=== PATIENT | male | born 1995 | race Caucasian/White ===

== ENCOUNTER 2021-10-22 16:28 | Inpatient (IN) ==
[2021-10-22] MEDS ORDERED: Ondansetron ODT 4 MG TAB.RAPDIS SL ONE (18:49)
[2021-10-22] MEDS ORDERED: Ipratropium/Albuterol Neb 3 ML IH ONE ×2 (18:59→20:00)
[2021-10-22] MEDS ORDERED: 0.9 % Sodium Chloride 1,000 ML IVC ONE (19:57)
[2021-10-22 20:18] LABS: Basophils % 0.6 %; Eosinophils # 0.2 K/mcL (0.0-0.6); Eosinophils % 3.1 %; Hematocrit 43.1 % (37.5-50.1); Hemoglobin 14.7 g/dL (12.9-16.9); Immature Granulocytes % 0.3 % (0-4); Lymphocytes # 1.4 K/mcL (0.6-4.6); Lymphocytes % 20.1 %; Mean Corpuscular HGB Conc 34.1 g/dL (31.6-35.5); Mean Corpuscular Hemoglobin 30.4 pg (28.0-33.3); Mean Corpuscular Volume 89.2 fL (83.0-100.0); Mean Platelet Volume 8.9 fL (9.4-12.4); Monocytes # 0.6 K/mcL (0.0-1.3); Monocytes % 8.3 %; Neutrophils # 4.8 K/mcL (1.6-8.9); Platelet Count 218 K/mcL (140-400); Red Blood Count 4.83 M/mcL (4.19-5.50); Red Cell Distribution Width 13.2 % (11.5-14.5); Segmented Neutrophils % 67.6 %; White Blood Count 7.1 K/mcL (4.3-11.1)
[2021-10-22 20:37] LABS: Adenovirus Not Detected (Not Detect); Bordetella Pertussis Not Detected (Not Detect); Chlamydophila pneumoniae Not Detected (Not Detect); Coronavirus 229E Not Detected (Not Detect); Coronavirus HKU1 Not Detected (Not Detect); Coronavirus NL63 Not Detected (Not Detect); Coronavirus OC43 Not Detected (Not Detect); Human Metapneumovirus Not Detected (Not Detect); Human Rhinovirus/Enterovirus DETECTED (Not Detect); Influenza A Subtype 2009 H1 Not Detected (Not Detect); Influenza B Not Detected (Not Detect); Mycoplasma pneumoniae Not Detected (Not Detect); Parainfluenza Virus 1 Not Detected (Not Detect); Parainfluenza Virus 2 Not Detected (Not Detect); Parainfluenza Virus 3 Not Detected (Not Detect); Parainfluenza Virus 4 Not Detected (Not Detect); Respiratory Syncytial Virus Not Detected (Not Detect); SARS-CoV-2 Not Detected (Not Detect)
[2021-10-22] MEDS ORDERED: Iopamidol - 370 500 ML MLS IVP ONE (20:57)
[2021-10-22 22:15] LABS: Alanine Aminotransferase 57 Units/L (7-52); Albumin 3.7 g/dL (3.5-5.7); Albumin/Globulin Ratio 1.2 (1.1-2.2); Alkaline Phosphatase 32 Units/L (34-104); Aspartate Amino Transferase 41 Units/L (13-39); BUN/Creatinine Ratio 20 (6-26); Bilirubin,Total 0.3 mg/dL (0.3-1.0); Blood Urea Nitrogen 16 mg/dL (6-20); Calcium 8.1 mg/dL (8.6-10.3); Carbon Dioxide 28 mEq/L (23-29); Chloride 102 mEq/L (98-107); Globulin 3.1 g/dL (2.4-3.5); Glucose 102 mg/dL (70-105); Osmolality,Calculated 287 (280-300); Potassium 3.6 mEq/L (3.5-5.1); Sodium 138 mEq/L (136-145); Total Protein 6.8 g/dL (6.4-8.9)
[2021-10-22] MEDS ORDERED: methylPREDNISolone 125 MG/2 ML VIAL IVP ONE (22:26)
[2021-10-22] MEDS ORDERED: Ondansetron ODT 4 MG TAB.RAPDIS SL PRN (23:58)
[2021-10-22] MEDS ORDERED: Naloxone 0.4 MG/ML INJ IVP PRN (23:58)
[2021-10-22] MEDS ORDERED: Melatonin 3 MG TABLET PO PRN (23:58)
[2021-10-23] MEDS ORDERED: Benzonatate 100 MG CAPSULE PO PRN (00:42)
[2021-10-23 02:06] LABS: Bilirubin,Urine Negative (Negative); Blood,Urine Negative (Negative); Clarity,Urine Clear (Clear); Color,Urine Light-Yellow (Yellow); Glucose,Urine (UA) Normal (Normal); Ketones,Urine Negative (Negative); Leukocyte Esterase,Urine Negative (Negative); Mucus,Urine Few per lpf (None-Few); Nitrite,Urine Negative (Negative); PH,Urine 6.5 pH Units (5.0-8.0); Protein,Urine 30 mg/dL (Neg-Trace); RBC,Urine 0-3 per hpf (0-3); Specific Gravity,Urine > 1.030 (1.010-1.025); Urobilinogen,Urine Normal (Normal)
[2021-10-23] MEDS: Ipratropium/Albuterol Neb 3 ML IH SCH ×4 (04:04→21:00)
[2021-10-23 08:35] LABS: Hematocrit 42.4 % (37.5-50.1); Hemoglobin 14.3 g/dL (12.9-16.9); Mean Corpuscular HGB Conc 33.7 g/dL (31.6-35.5); Mean Corpuscular Hemoglobin 30.2 pg (28.0-33.3); Mean Corpuscular Volume 89.6 fL (83.0-100.0); Mean Platelet Volume 9.1 fL (9.4-12.4); Platelet Count 249 K/mcL (140-400); Red Blood Count 4.73 M/mcL (4.19-5.50); Red Cell Distribution Width 13.2 % (11.5-14.5); White Blood Count 5.4 K/mcL (4.3-11.1)
[2021-10-23 08:50] LABS: BUN/Creatinine Ratio 23 (6-26); Blood Urea Nitrogen 19 mg/dL (6-20); Calcium 9.3 mg/dL (8.6-10.3); Carbon Dioxide 26 mEq/L (23-29); Chloride 102 mEq/L (98-107); Glucose 243 mg/dL (70-105); Magnesium 2.3 mg/dL (1.6-2.6); Osmolality,Calculated 292 (280-300); Sodium 136 mEq/L (136-145)
[2021-10-23] MEDS: MethylPREDNISolone 40 MG/ML VIAL IVP SCH ×2 (09:00→16:59)
[2021-10-23] MEDS: Azithromycin 250 MG TABLET PO SCH (09:00)
[2021-10-23] MEDS: RisperiDAL 3 MG TABLET PO SCH ×2 (09:00→20:46)
[2021-10-23] MEDS ORDERED: Ringers Solution, Lactated 500 ML IVC ONE (12:26)
[2021-10-24] MEDS: MethylPREDNISolone 40 MG/ML VIAL IVP SCH ×4 (00:31→23:50)
[2021-10-24] MEDS: Ipratropium/Albuterol Neb 3 ML IH SCH ×4 (03:34→22:03)
[2021-10-24] MEDS ORDERED: MOM Conc 10 ML UD.LIQ PO PRN (09:12)
[2021-10-24] MEDS ORDERED: Carbamide Peroxide 150 DROP/15 ML BOTTLE BOTH EARS PRN (09:12)
[2021-10-24] MEDS ORDERED: Acetaminophen 325 MG TABLET PO PRN (09:13)
[2021-10-24 09:30] LABS: Basophils % 0.1 %; Hemoglobin 13.6 g/dL (12.9-16.9); Immature Granulocytes % 0.5 % (0-4); Lymphocytes # 1.1 K/mcL (0.6-4.6); Lymphocytes % 7.2 %; Mean Corpuscular HGB Conc 33.2 g/dL (31.6-35.5); Mean Corpuscular Hemoglobin 30.2 pg (28.0-33.3); Mean Corpuscular Volume 90.9 fL (83.0-100.0); Mean Platelet Volume 9.3 fL (9.4-12.4); Monocytes # 0.6 K/mcL (0.0-1.3); Monocytes % 4.4 %; Platelet Count 252 K/mcL (140-400); Red Blood Count 4.51 M/mcL (4.19-5.50); Red Cell Distribution Width 13.3 % (11.5-14.5); Segmented Neutrophils % 87.8 %
[2021-10-24 09:32] LABS: Neutrophils # 12.8 K/mcL (1.6-8.9); White Blood Count 14.6 K/mcL (4.3-11.1)
[2021-10-24] MEDS: Multivit/Ca/Min/Fe/FA 1 TAB TABLET PO SCH (09:44)
[2021-10-24] MEDS: Piperacillin/Tazobactam 3.375 GM in 0.9 % Sodium Chloride Mini Bag 100 ML IVPB SCH ×3 (09:44→23:52)
[2021-10-24] MEDS: RisperiDAL 3 MG TABLET PO SCH ×2 (09:44→20:45)
[2021-10-24] MEDS: Azithromycin 250 MG TABLET PO SCH ×2 (09:44→10:03)
[2021-10-24] MEDS: Vancomycin 1,250 MG/262.5 ML IV.SOLN IVPB SCH ×2 (09:45→20:46)
[2021-10-24 10:04] LABS: BUN/Creatinine Ratio 33 (6-26); Blood Urea Nitrogen 24 mg/dL (6-20); Calcium 9.3 mg/dL (8.6-10.3); Carbon Dioxide 27 mEq/L (23-29); Chloride 104 mEq/L (98-107); Glucose 155 mg/dL (70-105); Osmolality,Calculated 293 (280-300); Potassium 4.2 mEq/L (3.5-5.1); Sodium 138 mEq/L (136-145)
[2021-10-24] MEDS: polyethylene glycoL 3350 17 GM POWD.PACK PO SCH (20:43)
[2021-10-25] MEDS: Ipratropium/Albuterol Neb 3 ML IH SCH ×4 (04:45→22:14)
[2021-10-25 05:17] LABS: Basophils % 0.1 %; Hematocrit 40.1 % (37.5-50.1); Hemoglobin 13.1 g/dL (12.9-16.9); Lymphocytes # 0.8 K/mcL (0.6-4.6); Lymphocytes % 5.5 %; Mean Corpuscular HGB Conc 32.7 g/dL (31.6-35.5); Mean Corpuscular Hemoglobin 29.9 pg (28.0-33.3); Mean Corpuscular Volume 91.6 fL (83.0-100.0); Mean Platelet Volume 9.4 fL (9.4-12.4); Monocytes # 0.6 K/mcL (0.0-1.3); Neutrophils # 13.1 K/mcL (1.6-8.9); Platelet Count 247 K/mcL (140-400); Red Blood Count 4.38 M/mcL (4.19-5.50); Red Cell Distribution Width 13.4 % (11.5-14.5); Segmented Neutrophils % 89.4 %; White Blood Count 14.7 K/mcL (4.3-11.1)
[2021-10-25 05:32] LABS: BUN/Creatinine Ratio 27 (6-26); Blood Urea Nitrogen 22 mg/dL (6-20); Calcium 9.1 mg/dL (8.6-10.3); Carbon Dioxide 28 mEq/L (23-29); Chloride 100 mEq/L (98-107); Glucose 295 mg/dL (70-105); Osmolality,Calculated 298 (280-300); Sodium 137 mEq/L (136-145)
[2021-10-25] MEDS: Multivit/Ca/Min/Fe/FA 1 TAB TABLET PO SCH (05:48)
[2021-10-25] MEDS: Azithromycin 250 MG TABLET PO SCH (11:02)
[2021-10-25] MEDS: Piperacillin/Tazobactam 3.375 GM in 0.9 % Sodium Chloride Mini Bag 100 ML IVPB SCH ×2 (11:02→19:02)
[2021-10-25] MEDS: MethylPREDNISolone 40 MG/ML VIAL IVP SCH ×2 (11:03→19:03)
[2021-10-25] MEDS: Vancomycin 1,250 MG/262.5 ML IV.SOLN IVPB SCH (11:10)
[2021-10-25] MEDS: RisperiDAL 3 MG TABLET PO SCH ×2 (11:11→21:27)
[2021-10-25] MEDS: polyethylene glycoL 3350 17 GM POWD.PACK PO SCH (19:03)
[2021-10-26] MEDS: MethylPREDNISolone 40 MG/ML VIAL IVP SCH ×3 (00:59→16:32)
[2021-10-26] MEDS: Piperacillin/Tazobactam 3.375 GM in 0.9 % Sodium Chloride Mini Bag 100 ML IVPB SCH ×3 (00:59→16:32)
[2021-10-26] MEDS: Ipratropium/Albuterol Neb 3 ML IH SCH ×4 (03:59→22:12)
[2021-10-26 04:15] LABS: Basophils % 0.2 %; Hematocrit 39.2 % (37.5-50.1); Immature Granulocytes % 1.1 % (0-4); Lymphocytes # 1.1 K/mcL (0.6-4.6); Lymphocytes % 8.1 %; Mean Corpuscular HGB Conc 33.2 g/dL (31.6-35.5); Mean Corpuscular Hemoglobin 30.2 pg (28.0-33.3); Mean Platelet Volume 8.9 fL (9.4-12.4); Monocytes # 0.5 K/mcL (0.0-1.3); Monocytes % 3.7 %; Neutrophils # 11.6 K/mcL (1.6-8.9); Platelet Count 240 K/mcL (140-400); Red Blood Count 4.31 M/mcL (4.19-5.50); Red Cell Distribution Width 13.2 % (11.5-14.5); Segmented Neutrophils % 86.9 %; White Blood Count 13.3 K/mcL (4.3-11.1)
[2021-10-26] MEDS: Multivit/Ca/Min/Fe/FA 1 TAB TABLET PO SCH (05:34)
[2021-10-26] MEDS: Azithromycin 250 MG TABLET PO SCH (09:31)
[2021-10-26] MEDS: RisperiDAL 3 MG TABLET PO SCH ×2 (09:32→20:50)
[2021-10-26] MEDS: polyethylene glycoL 3350 17 GM POWD.PACK PO SCH (20:51)
[2021-10-27] MEDS: MethylPREDNISolone 40 MG/ML VIAL IVP SCH ×3 (01:12→17:06)
[2021-10-27] MEDS: Piperacillin/Tazobactam 3.375 GM in 0.9 % Sodium Chloride Mini Bag 100 ML IVPB SCH ×3 (01:12→20:33)
[2021-10-27] MEDS: Ipratropium/Albuterol Neb 3 ML IH SCH ×4 (04:35→21:47)
[2021-10-27] MEDS: Multivit/Ca/Min/Fe/FA 1 TAB TABLET PO SCH ×2 (05:57→11:25)
[2021-10-27] MEDS ORDERED: E-Z-HD (BARIUM SULF) SUSPENSION PO ONE (10:47)
[2021-10-27] MEDS ORDERED: E-Z-PAQUE (BARIUM SULF) SUSP 1 BOTTLE PO ONE (10:47)
[2021-10-27 11:23] LABS: Basophils % 0.3 %; Hematocrit 43.5 % (37.5-50.1); Hemoglobin 14.5 g/dL (12.9-16.9); Immature Granulocytes % 1.2 % (0-4); Lymphocytes % 12.8 %; Mean Corpuscular HGB Conc 33.3 g/dL (31.6-35.5); Mean Corpuscular Hemoglobin 30.3 pg (28.0-33.3); Mean Corpuscular Volume 90.8 fL (83.0-100.0); Mean Platelet Volume 9.4 fL (9.4-12.4); Monocytes # 0.8 K/mcL (0.0-1.3); Monocytes % 5.3 %; Neutrophils # 12.6 K/mcL (1.6-8.9); Platelet Count 285 K/mcL (140-400); Red Blood Count 4.79 M/mcL (4.19-5.50); Red Cell Distribution Width 12.9 % (11.5-14.5); Segmented Neutrophils % 80.4 %; White Blood Count 15.6 K/mcL (4.3-11.1)
[2021-10-27] MEDS: RisperiDAL 3 MG TABLET PO SCH ×2 (11:25→20:36)
[2021-10-27] MEDS: Azithromycin 250 MG TABLET PO SCH (11:31)
[2021-10-27] MEDS: polyethylene glycoL 3350 17 GM POWD.PACK PO SCH (20:33)
[2021-10-28] MEDS: MethylPREDNISolone 40 MG/ML VIAL IVP SCH ×3 (00:28→20:07)
[2021-10-28] MEDS: Ipratropium/Albuterol Neb 3 ML IH SCH ×4 (04:25→22:13)
[2021-10-28] MEDS: Piperacillin/Tazobactam 3.375 GM in 0.9 % Sodium Chloride Mini Bag 100 ML IVPB SCH ×3 (05:30→20:07)
[2021-10-28] MEDS: Multivit/Ca/Min/Fe/FA 1 TAB TABLET PO SCH (05:55)
[2021-10-28 06:31] LABS: Basophils # 0.1 K/mcL (0.0-0.2); Basophils % 0.3 %; Hematocrit 44.4 % (37.5-50.1); Lymphocytes # 1.4 K/mcL (0.6-4.6); Mean Corpuscular HGB Conc 33.8 g/dL (31.6-35.5); Mean Corpuscular Hemoglobin 30.2 pg (28.0-33.3); Mean Corpuscular Volume 89.5 fL (83.0-100.0); Mean Platelet Volume 9.2 fL (9.4-12.4); Monocytes # 0.7 K/mcL (0.0-1.3); Monocytes % 4.5 %; Neutrophils # 13.1 K/mcL (1.6-8.9); Platelet Count 285 K/mcL (140-400); Red Blood Count 4.96 M/mcL (4.19-5.50); Red Cell Distribution Width 12.8 % (11.5-14.5); Segmented Neutrophils % 84.2 %; White Blood Count 15.6 K/mcL (4.3-11.1)
[2021-10-28] MEDS: Azithromycin 250 MG TABLET PO SCH (09:45)
[2021-10-28] MEDS: RisperiDAL 3 MG TABLET PO SCH ×2 (09:45→20:07)
[2021-10-28] MEDS: polyethylene glycoL 3350 17 GM POWD.PACK PO SCH (20:07)
[2021-10-29 04:09] VITALS: BP 159/95; PULSE 118; TEMP 97.6
[2021-10-29] MEDS: Piperacillin/Tazobactam 3.375 GM in 0.9 % Sodium Chloride Mini Bag 100 ML IVPB SCH (04:11)
[2021-10-29] MEDS: Ipratropium/Albuterol Neb 3 ML IH SCH ×2 (04:20→10:10)
[2021-10-29] MEDS: Multivit/Ca/Min/Fe/FA 1 TAB TABLET PO SCH (06:12)
[2021-10-29 06:25] LABS: Basophils # 0.1 K/mcL (0.0-0.2); Basophils % 0.4 %; Eosinophils % 0.1 %; Hematocrit 46.1 % (37.5-50.1); Hemoglobin 15.3 g/dL (12.9-16.9); Immature Granulocytes % 1.9 % (0-4); Lymphocytes # 1.7 K/mcL (0.6-4.6); Lymphocytes % 11.1 %; Mean Corpuscular HGB Conc 33.2 g/dL (31.6-35.5); Mean Corpuscular Hemoglobin 29.8 pg (28.0-33.3); Mean Corpuscular Volume 89.7 fL (83.0-100.0); Mean Platelet Volume 9.2 fL (9.4-12.4); Monocytes # 1.1 K/mcL (0.0-1.3); Neutrophils # 12.5 K/mcL (1.6-8.9); Platelet Count 298 K/mcL (140-400); Red Blood Count 5.14 M/mcL (4.19-5.50); Red Cell Distribution Width 13.1 % (11.5-14.5); Segmented Neutrophils % 79.5 %; White Blood Count 15.6 K/mcL (4.3-11.1)
[2021-10-29] MEDS: RisperiDAL 3 MG TABLET PO SCH (09:09)
[2021-10-29] MEDS: MethylPREDNISolone 40 MG/ML VIAL IVP SCH (09:09)
[2021-10-29 13:46] VITALS: O2SAT 97
== END 2021-10-29 10:43 | disposition home or self-care (01) | DRG 193 ==
LOC: EMEROOARM 16:28 → 2ANU 16:28 → SUATTDRO 10-23 00:01 → 2ANU 10-23 00:46 → SUATTDRO 10-24 12:45
PROVIDERS: ADMIT Student in an Organized Health Care Education/Training Program; ATTEND Internal Medicine